=== PATIENT | male | born 1965 | race African-American/Black ===

== ENCOUNTER 2020-01-18 12:17 | Emergency (ER) | payer SELFPAY ==
[2020-01-19 03:07] LABS: SARS-CoV-2 MS2 Positive; SARS-CoV-2 N Gene Negative; SARS-CoV-2 S Gene Negative; SARS-CoV-2 by NAA Not Detected (NotDetected); SARS-CoV-2 orf1ab Negative
== END 2020-01-18 12:50 | disposition home or self-care (01) ==
LOC: NAV ERS 12:17
DX: R05 Cough (principal); R09.81 Nasal congestion; Z20.828 Contact with and (suspected) exposure to other viral communicable diseases
CPT/HCPCS: 87635; 99283; U0003

== ENCOUNTER 2020-08-03 16:52 | Emergency (ER) | payer OTHER, SELFPAY ==
[2020-08-03] MEDS ORDERED: predniSONE 20 MG TAB ONE (17:54)
== END 2020-08-03 18:00 | disposition home or self-care (01) ==
LOC: NAV ERS 16:52
DX: M54.31 Sciatica, right side (principal)
CPT/HCPCS: 72100; J7512

== ENCOUNTER 2023-09-18 13:24 | Emergency (ER) | payer SELFPAY ==
[2023-09-18] MEDS ORDERED: Acetaminophen 325 MG TAB ONE (14:29)
== END 2023-09-18 14:42 | disposition home or self-care (01) ==
LOC: NAV ERS 13:24
DX: S39.012A Strain of muscle, fascia and tendon of lower back, initial encounter (principal); M51.36 Other intervertebral disc degeneration, lumbar region; M47.816 Spondylosis without myelopathy or radiculopathy, lumbar region; V43.62XA Car passenger injured in collision with other type car in traffic accident, initial encounter
CPT/HCPCS: 72100